=== PATIENT | female | born 1980 | race Caucasian/White ===

== ENCOUNTER 2020-07-02 12:56 | Emergency (ER) | payer OTHER ==
--- NOTE | 2020-07-02 13:45 | XRAY Report ---
PROCEDURE: Hand 3 View LT INDICATIONS: injury/pain/swelling TECHNIQUE: 3 views of the hand(s) acquired. COMPARISON: None available FINDINGS: Bones: There is lucency seen across the waist of the scaphoid. There is a mildly displaced fracture seen involving the base of the second metacarpal, with potential intra-articular involvement. No yovani tional fractures or dislocations. No suspicious bony lesions. Soft tissues: Soft tissue swelling is seen. IMPRESSION: Mildly displaced fracture at the base of the second metacarpal, with potential intra-articular involv ement. There is a potential accompanying scaphoid fracture seen. Further evaluation is recommended, which could be accomplished either with a dedicated CT study or a dedicated wrist study with scaphoid view. Reviewed by: Denis Fontenot MD on 07/02/2020 12:44 PM [facility] Approved by: Denis Fontenot MD on 07/02/2020 12:44 PM [facility] Station ID: [id number]
--- NOTE | 2020-07-02 14:21 | ED Physician Documentation ---
History of Present Illness - Stated complaint Stated Complaint: LT HAND INJURY - Chief complaint Chief Complaint: Trauma Ext - Additonal information Additional information: Patient comes emergency department complaining of left hand pain after taking a fall while walking on [address] yesterday. Patient states she was not injured in any other way. She fell on her outstretched hand and has had pain and swelling in the thenar eminence area ever since. No numbness or tingling. No pain or swelling in any of the rest of her left upper extremity. She is right- hand dominant. No other complaints at this time. Review of Systems Ten Systems: 10 systems reviewed and negative Constitutional: reports: Reviewed and negative Eyes: reports: Reviewed and negative Ears: reports: Reviewed and negative Nose: reports: Reviewed and negative Throat: reports: Reviewed and negative Cardiac: reports: Reviewed and negative Respiratory: reports: Reviewed and negative GI: reports: Reviewed and negative : reports: Reviewed and negative Skin: reports: Reviewed and negative Musculoskeletal: reports: Extremity pain, Joint pain Neurologic: reports: Reviewed and negative Psychiatric: reports: Reviewed and negative Endocrine: reports: Reviewed and negative Immunocompromised: reports: Reviewed and negative PD PAST MEDICAL HISTORY - Past Medical History Past Medical History: No - Past Surgical History Past Surgical History: No - Present Medications Home Medications: Ambulatory Orders Medication Instructions Recorded Confirmed HYDROcod/ACETAM 5/325 [[place] 5/325] 1 - 2 ea PO Q6H PRN #15 tablet 07/02/20 - Social History Does the pt smoke?: No Smoking Status: Never smoker Does the pt drink ETOH?: No ETOH Use: Liquor Does the pt have substance abuse?: No - Immunizations Immunizations are current?: Yes PD ED PE NORMAL - Vitals Vital signs reviewed: Yes - General General: Alert and oriented X 3, No acute distress - HEENT HEENT: Atraumatic, PERRL, EOMI, Moist mucous membranes - Neck Neck: Supple, no meningeal sign - Cardiac Cardiac: Strong equal pulses - Respiratory Respiratory: No respiratory distress - Derm Derm: Warm and dry - Extremities Extremities: No deformity, Normal ROM s pain (Left elbow and shoulder.), Other (Moderate tenderness palpation over the radial aspect of the left hand specifically, in the snuffbox area. Patient also has tenderness at the base of the second metacarpal bone dorsally. No tenderness over metacarpals 3 through 5. No obvious deformity. ROM fingers limited secondary to pain.) - Neuro Neuro: Alert and oriented X 3 - Psych Psych: Normal mood, Normal affect Results - Vitals Vitals: Vital Signs - 24 hr 07/02/20 07/02/20 07/02/20 13:03 13:20 14:59 Temperature 36.6 C 37.5 C 37.2 C Heart Rate 80 76 83 Respiratory 16 16 16 Rate Blood Pressure 150/91 H 132/82 H 129/86 H O2 Saturation 98 98 99 Oxygen O2 Source Room air - Rads (name of study) L hand xr Radiology: Final report received, EMP read indepedently, See rad report (Base of second metacarpal bone, possible scaphoid fracture.) L wrist xr Radiology: Final report received, EMP read indepedently, See rad report (No obvious scaphoid fx; 2nd MC fx) Procedures - Splint (location) L wrist/hand Splint applied by: Tech (Under my supervision.) Type of splint: Thumb spica, Other (With radial gutter) Other: Patient tolerated well, No complications, Neurovascular intact, Sling provided PD MEDICAL DECISION MAKING - ED course Complexity details: reviewed results, re-evaluated patient, considered differential, d/w patient ED course: Patient was worked up with x-ray series of the left hand and wrist. Left hand x-rays showed a fracture of the base of the second metacarpal bone, as well as a possible scaphoid fracture. Wrist x-ray showed the second metacarpal fracture but no obvious scaphoid fracture. Patient was splinted as above. We have discussed the need for Ortho follow-up, and patient states she is currently living in [place] and will need to be seen at [facility], as she is in the [employer]. I have given her follow-up with Ortho here to just in case. She is given a prescription for Vicodin and instructed regarding the usual indications for return. Departure - Departure Disposition: 01 Home, Self Care Condition: Stable Instructions: ED Fx Hand Closed, ED Fx Wrist Navicular Poss Follow-Up: [facility] [Provider Group] Prescriptions: HYDROcod/ACETAM 5/325 [[place] 5/325] 1 - 2 ea PO Q6H PRN #15 tablet PRN Reason: Pain Comments: As we have discussed, your x-ray shows a break in the metacarpal bone of your hand, that attaches to your index finger. A possible fracture of the scaphoid bone, at the base of the thumb side of your hand in the wrist, was noted on your hand x-rays. However, this does not show up on your wrist x-rays. Since you have pain over that bone, and it is very important to make sure the bone heals correctly, we have placed you in a splint to position the bone correctly, as well. It is important that you follow-up with orthopedics regarding your hand fracture and potential wrist fracture, to make sure that these all heal correctly. You may take ibuprofen and Tylenol as needed for pain. If you need something stronger, you may substitute the Vicodin for Tylenol, especially at night. Please also elevate the hand/wrist and apply ice as needed. Call the orthopedic office to set up a follow-up appointment as soon as possible.
[2020-07-02 15:01] VITALS: BP 129/86
--- NOTE | 2020-07-02 15:12 | XRAY Report ---
PROCEDURE: Wrist 4 View LT INDICATIONS: injury/pain/swelling/poss scaphoid fx TECHNIQUE: 4 views of the wrist were acquired. COMPARISON: Correlation is made with the accompanying hand plain films, 07/02/2020. FINDINGS: Bones: There is again seen a fracture involving the base of the second metacarpal, with intra-articu lar involvement. This fracture is much better seen on the previously performed and plain films. No ad ditional fractures or dislocations. No suspicious bony lesions. Scaphoid view: No scaphoid fractures are seen. Soft tissues: No suspicious soft tissue calcifications. IMPRESSION: No scaphoid fracture is seen on these images. Mildly displaced second metacarpal base fracture. Reviewed by: Denis Fontenot MD on 07/02/2020 2:10 PM [facility] Approved by: Denis Fontenot MD on 07/02/2020 2:10 PM [facility] Station ID: [id number]
== END 2020-07-02 15:56 | disposition home or self-care (01) ==
LOC: ED 12:56
DX: S62.311A Displaced fracture of base of second metacarpal bone, left hand, initial encounter for closed fracture (principal); W01.0XXA Fall on same level from slipping, tripping and stumbling without subsequent striking against object, initial encounter; Y93.01 Activity, walking, marching and hiking; Y92.832 Beach as the place of occurrence of the external cause
CPT/HCPCS: 29125; 99283